=== PATIENT | male | born 1955 | race African-American/Black ===

== ENCOUNTER 2023-08-21 08:49 | Emergency (ER) | payer BC ==
[~2023-08-21] VITALS: Ht 195.6 cm; Wt 99.0 kg
[2023-08-21 08:56] VITALS: O2SAT 97
[2023-08-21 09:47] LABS: BASOPHILS % 0.7 % (0.0-2.0); HEMATOCRIT. 44.9 % (42.0-52.0); HEMOGLOBIN. 15.1 g/dL (14.0-18.0); LYMPHOCYTES % 15.9 % (20.0-50.0); MEAN CORPUSCULAR HEMOGLOBIN 30.4 pg (28.0-32.0); MEAN CORPUSCULAR HGB CONC 33.7 g/dL (31.0-37.0); MEAN CORPUSCULAR VOLUME 90.2 fL (80.0-94.0); MEAN PLATELET VOLUME 8.9 fl (7.4-10.4); MONOCYTES % 6.3 % (2.0-8.0); NEUTROPHILS % 77.1 % (40.0-76.0); PLATELET 198 x1000/uL (130-400); RED BLOOD CELL COUNT 4.98 mill/uL (4.7-6.1); RED CELL DISTRIBUTION WIDTH 14.4 % (11.6-14.6); WHITE BLOOD COUNT 7.6 x1000/uL (4.5-11.0)
[2023-08-21 09:57] LABS: CHLORIDE 102 mEq/L (98-107); INDEX HEMOLYSI 1 (1-3); INDEX ICTERIC 1 (1-4); INDEX LIPEMIC 1 (1-3); SODIUM 135 mEq/L (136-145)
[2023-08-21 10:06] LABS: ALANINE AMINOTRANSFERASE 29 IU/L (13-61); ASPARTATE AMINOTRANSFERASE 22 IU/L (15-37); CALCIUM 9.3 mg/dL (8.5-10.1); CARBON DIOXIDE 26 mEq/L (21-32); CREATININE 0.9 mg/dL (0.6-1.3); GLUCOSE 113 mg/dL (70-105); PROTEIN TOTAL 8.7 g/dL (6.0-8.3); UREA NITROGEN BLOOD 11 mg/dL (7-21)
[2023-08-21 10:34] VITALS: BP 148/88; PULSE 70; RESP 18; TEMP 98.7
== END 2023-08-21 10:35 | disposition home or self-care (01) ==
LOC: ER 09:11
DX: Z00.00 Encounter for general adult medical examination without abnormal findings (principal); R41.3 Other amnesia
CPT/HCPCS: 36415; 80053; 85025; 99283

== ENCOUNTER 2024-04-28 10:18 | Emergency (ER) | payer BC ==
[~2024-04-28] VITALS: Ht 198.1 cm; Wt 111.0 kg
[2024-04-28 10:44] VITALS: O2SAT 97
[2024-04-28] MEDS: KETOROLAC 15MG/ML VIAL IM ONE (11:00)
[2024-04-28] MEDS ORDERED: LIDO700A15 TP (12:01)
[2024-04-28] MEDS ORDERED: DICL100G58 TP (12:01)
[2024-04-28 12:53] VITALS: BP 128/78; PULSE 81; RESP 16; TEMP 98.3
== END 2024-04-28 12:54 | disposition home or self-care (01) ==
LOC: ER 10:44
DX: M25.552 Pain in left hip (principal); M25.551 Pain in right hip; Z98.890 Other specified postprocedural states
CPT/HCPCS: 99283; 73521; 96372; J1885

== ENCOUNTER 2024-06-26 12:42 | Emergency (ER) | payer BC ==
[~2024-06-26] VITALS: Ht 198.1 cm; Wt 95.0 kg
[~2024-06-26 12:42] MED LIST: DICL100G58 TP; LIDO700A15 TP
[2024-06-26 12:49] VITALS: O2SAT 98
[2024-06-26] MEDS ORDERED: ONDANSETRON HCL 4MG/2ML INJ IV STA (16:55)
[2024-06-26] MEDS: SODIUM CHLORIDE 0.9% 1,000 ML IV ONE (17:00)
[2024-06-26] MEDS: DICYCLOMINE HCL 10MG/ML 2ML VIAL IM ONE (17:00)
[2024-06-26 18:07] LABS: BASOPHILS % 0.6 % (0.0-2.0); HEMATOCRIT. 45.1 % (42.0-52.0); HEMOGLOBIN. 15.2 g/dL (14.0-18.0); LYMPHOCYTES % 8.9 % (20.0-50.0); MEAN CORPUSCULAR HEMOGLOBIN 30.9 pg (28.0-32.0); MEAN CORPUSCULAR HGB CONC 33.7 g/dL (31.0-37.0); MEAN CORPUSCULAR VOLUME 91.5 fL (80.0-94.0); MEAN PLATELET VOLUME 9.3 fl (7.4-10.4); MONOCYTES % 2.4 % (2.0-8.0); NEUTROPHILS % 88.1 % (40.0-76.0); PLATELET 157 x1000/uL (130-400); RED BLOOD CELL COUNT 4.92 mill/uL (4.7-6.1); RED CELL DISTRIBUTION WIDTH 14.3 % (11.6-14.6); WHITE BLOOD COUNT 8.6 x1000/uL (4.5-11.0)
[2024-06-26 18:11] LABS: CHLORIDE 103 mEq/L (98-107); POTASSIUM 4.3 mEq/L (3.5-5.1); SODIUM 137 mEq/L (136-145)
[2024-06-26 18:12] LABS: CALCIUM 10.2 mg/dL (8.7-10.4); CARBON DIOXIDE 28 mEq/L (21-32)
[2024-06-26 18:17] LABS: GLUCOSE 134 mg/dL (70-105); UREA NITROGEN BLOOD 9 mg/dL (9-23)
[2024-06-26] MEDS: ACETAMINOPHEN 325MG TABLET PO ONE (19:01)
[2024-06-26] MEDS: ONDANSETRON HCL 4MG/2ML INJ IV NR (19:17)
[2024-06-26 20:18] VITALS: BP 128/78; PULSE 60; RESP 16; TEMP 36.89184; O2SAT 98
== END 2024-06-26 20:33 | disposition home or self-care (01) ==
LOC: ER 12:51
DX: R11.2 Nausea with vomiting, unspecified (principal); R51.9 Headache, unspecified
CPT/HCPCS: 99283; 96374; 96361; 80048; 83690; 85025; 36415; 96372; J0500; J2405; J7030